=== PATIENT | male | born 1965 | race Caucasian/White ===

== ENCOUNTER 2017-10-16 15:48 | Emergency (ER) | payer OTHER ==
[2017-10-16] MEDS ORDERED: Sodium Chloride 0.9% 10 ML Syringe FLUSH PRN (16:07)
[2017-10-16] MEDS ORDERED: HYDROmorphone 0.5 MG/0.5 ML SYRINGE IVPUSH ONE (16:09)
[2017-10-16] MEDS ORDERED: Ketorolac 30 MG/ML SDV IVPUSH ONE (16:09)
[2017-10-16] MEDS ORDERED: Lidocaine 1% 50 ML MDV INJECT ONE (17:45)
[2017-10-16] MEDS ORDERED: HYDROmorphone 1 MG/ML Syringe IVPUSH ONE (17:59)
[2017-10-16] MEDS ORDERED: methylPREDNISolone Sodium Succinate 125 MG/2 ML SDV IVPUSH ONE (17:59)
--- NOTE | 2017-10-16 18:04 | EDM.PDOC ---
ED HPI GENERAL MEDICAL PROBLEM - General Chief Complaint: Lower Extremity Injury/Pain Stated Complaint: LEFT KNEE PROBLEM Time Seen by Provider: 10/16/17 15:53 Source of Information: Reports: Patient History Limitations: Reports: No Limitations - History of Present Illness INITIAL COMMENTS - FREE TEXT/NARRATIVE: The patient presents with left knee swelling and pain. This started a few days ago. He does not remember hurting it. He has a history of problems with this knee. He hurt his miniscus years ago and had surgery. He tells me that the meniscus was removed. He also had some bone that they cleaned up. He then would have steroid injections every 6 months for a few years. He had a hinged brace but it is not fitting right lately. He was hurting so bad he could not bear weight on it. He has no fever, chills, chest pain, or shortness of breath. The patient has something going on with an ear and he was put on some methyl prednisolone. His knee felt great for a few days before it started hurting. Onset: Gradual Duration: Day(s): (3) Location: Reports: Lower Extremity, Left (Knee) Quality: Reports: Sharp Severity: Severe Improves with: Reports: Immobilization Worsens with: Reports: Movement Context: Reports: Other (He was just at work) Associated Symptoms: Reports: No Other Symptoms Left Knee Pain Score (Numeric/FACES): 9 - Related Data Allergies Allergy/AdvReac Type Severity Reaction Status Date / Time Penicillins Allergy Hives Verified 10/16/17 15:58 Home Meds: Home Meds Hydrocodone/Acetaminophen [Hydrocodon-Acetaminophen 5-325] 1 - 2 each PO Q6HR PRN #20 tablet 10/16/17 [Rx] Past Medical History - Past Surgical History Musculoskeletal Surgical History: Reports: Shoulder Surgery, Other (See Below) Other Musculoskeletal Surgeries/Procedures:: knee surgery Social & Family History - Family History Family Medical History: Noncontributory - Tobacco Use Smoking Status *Q: Current Every Day Smoker Years of Tobacco use: 8 Packs/Tins Daily: 0.5 - Caffeine Use Caffeine Use: Reports: Coffee - Recreational Drug Use Recreational Drug Use: No Review of Systems - Review of Systems Review Of Systems: See Below Constitutional: Reports: No Symptoms Eyes: Reports: No Symptoms Ears: Reports: No Symptoms Nose: Reports: No Symptoms Mouth/Throat: Reports: No Symptoms Respiratory: Reports: No Symptoms Cardiovascular: Reports: No Symptoms GI/Abdominal: Reports: No Symptoms Genitourinary: Reports: No Symptoms Musculoskeletal: Reports: Other (Left knee pain and swelling) ED EXAM, GENERAL - Physical Exam Exam: See Below Exam Limited By: No Limitations General Appearance: Alert, No Apparent Distress Ears: Normal External Exam Nose: Normal Inspection Head: Atraumatic, Normocephalic Neck: Normal Inspection Respiratory/Chest: No Respiratory Distress, Lungs Clear, Normal Breath Sounds Cardiovascular: Regular Rate, Rhythm, No Edema, No Murmur GI/Abdominal: Soft, Non-Tender, No Organomegaly, No Mass Back Exam: Normal Inspection Extremities: Other (Moderate edema to the left knee with no erythema. Mild warmth to the distal patellar tendon. He has pain to that area and to the medial and posterior knee. He has good sensation and pulses distally. He can lift his lef off of the bed.) Course - Vital Signs Last Recorded V/S: Last Vital Signs Temp 97.7 F 10/16/17 15:55 Pulse 72 10/16/17 15:55 Resp 18 10/16/17 15:55 BP 140/60 10/16/17 15:55 Pulse Ox 97 10/16/17 15:55 - Orders/Labs/Meds Orders: Active Orders 24 hr Category Date Time Status Peripheral IV Care [RC] . DIRECTED Care 10/16/17 16:08 Active Knee Min 4V Lt [CR] Stat Exams 10/16/17 16:10 Taken Sodium Chloride 0.9% [Saline Flush] Med 10/16/17 16:07 Active 10 ml FLUSH ASDIRECTED PRN Peripheral IV Insertion Adult [OM.PC] Stat Oth 10/16/17 16:07 Ordered Medication Orders Sodium Chloride (Saline Flush) 10 ml FLUSH ASDIRECTED PRN PRN Reason: Keep Vein Open Last Admin: 10/16/17 16:26 Dose: 10 ml Labs: Laboratory Tests 10/16/17 10/16/17 10/16/17 Range/Units 16:30 16:30 16:30 WBC 13.21 H (4.23-9.07) K/mm3 RBC 5.04 (4.63-6.08) M/mm3 Hgb 15.9 (13.7-17.5) gm/L Hct 46.1 (40.1-51.0) % MCV 91.5 (79.0-92.2) fl MCH 31.5 (25.7-32.2) pg MCHC 34.5 (32.2-35.5) g/dl RDW Std Deviation 43.0 (35.1-43.9) fL Plt Count 221 (163-337) K/mm3 MPV 10.8 (9.4-12.3) fl Neut % (Auto) 75.6 H (34.0-67.9) % Lymph % (Auto) 12.9 L (21.8-53.1) % Russell % (Auto) 10.1 (5.3-12.2) % Eos % (Auto) 0.9 (0.8-7.0) Baso % (Auto) 0.2 (0.1-1.2) % Neut # (Auto) 9.99 H (1.78-5.38) K/mm3 Lymph # (Auto) 1.70 (1.32-3.57) K/mm3 Russell # (Auto) 1.33 H (0.30-0.82) K/mm3 Eos # (Auto) 0.12 (0.04-0.54) K/mm3 Baso # (Auto) 0.03 (0.01-0.08) K/mm3 ESR 17 H (0-15) mm/hr Sodium 134 L (136-145) mEq/L Potassium 3.9 (3.5-5.1) mEq/L Chloride 100 (98-107) mEq/L Carbon Dioxide 23 (21-32) mEq/L Anion Gap 14.9 (5-15) BUN 23 H (7-18) mg/dL Creatinine 0.9 (0.7-1.3) mg/dL Est Cr Clr Drug Dosing 90.78 mL/min Estimated GFR (MDRD) > 60 (>60) mL/min BUN/Creatinine Ratio 25.6 H (14-18) Glucose 112 H (74-106) mg/dL Uric Acid 7.0 (3.5-7.2) mg/dL Calcium 9.0 (8.5-10.1) mg/dL Total Bilirubin 0.7 (0.2-1.0) mg/dL AST 20 (15-37) U/L ALT 39 (16-63) U/L Alkaline Phosphatase 76 (46-116) U/L C-Reactive Protein 5.2 H* (<1.0) mg/dL Total Protein 7.5 (6.4-8.2) g/dl Albumin 3.7 (3.4-5.0) g/dl Globulin 3.8 gm/dL Albumin/Globulin Ratio 1.0 (1-2) Meds: Medications Generic Name Dose Route Start Last Admin Trade Name Fresanjeev PRN Reason Stop Dose Admin Sodium Chloride 10 ml 10/16/17 16:07 10/16/17 16:26 Saline Flush FLUSH 10 ml ASDIRECTED PRN Administration Keep Vein Open Discontinued Medications Generic Name Dose Route Start Last Admin Trade Name Madison PRN Reason Stop Dose Admin Hydromorphone HCl 0.5 mg 10/16/17 16:09 10/16/17 16:26 Dilaudid IVPUSH 10/16/17 16:10 0.5 mg ONETIME ONE Administration Ketorolac Tromethamine 30 mg 10/16/17 16:09 10/16/17 16:26 Toradol IVPUSH 10/16/17 16:10 30 mg ONETIME ONE Administration Lidocaine HCl 50 ml 10/16/17 17:45 10/16/17 17:43 Xylocaine 1% INJECT 10/16/17 17:46 50 ml ONETIME ONE Administration - Re-Assessments/Exams Free Text/Narrative Re-Assessment/Exam: 10/16/17 18:08 I ordered an IV saline lock, dilaudid 0.5mg IV, toradol 30mg IV, labs and an x- ray of his knee. His x-ray shows moderate to severe osteoarthritis. His WBC was a little elevated at 13.21. His ESR was elevated at 17. His CRP is elevated at 5.2. His Na was low at 134. I talked to Dr Kaufman and he wanted me to try to tap his knee and get him a hinged brace and he can see him in follow up. Consent was obtained and I used chlorprep to clean the left medial knee in the area of the lateral proximal patella. I used lidocaine 1.5ccs to anaesthetize the area. I attempted to to a thorocentesis with a 20ml syringe. I was unable to get any fluid. I tried again and again I was unable to get any fluid. I could not advance. I will give him something more for pain and solu-medrol 125mg IV. I will also write him a prescription for a hinged knee brace. Departure - Departure Time of Disposition: 18:20 Disposition: Home, Self-Care 01 Condition: Good Clinical Impression: Osteoarthritis of left knee Qualifiers: Osteoarthritis type: primary Qualified Code(s): M17.12 - Unilateral primary osteoarthritis, left knee - Discharge Information *PRESCRIPTION DRUG MONITORING PROGRAM REVIEWED*: No *COPY OF PRESCRIPTION DRUG MONITORING REPORT IN PATIENT JOVITA: No Prescriptions: Hydrocodone/Acetaminophen [Hydrocodon-Acetaminophen 5-325] 1 - 2 each PO Q6HR PRN #20 tablet PRN Reason: Pain Referrals: PCP,None [Primary Care Provider] - Gregory Kaufman MD [Physician] - 1 Week Additional Instructions: Ice your knee for 15 minutes every other hour while awake for 2 days. Elevate your knee above your heart as much as you can for 2 days. Take motrin or aleve for pain. You may also take the hydrocodone as needed for pain. Call Dr Kaufman' s office and tomorrow and follow up with him in 1 to 2 weeks. 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 Please return if you are worse. - My Orders Last 24 Hours: My Active Orders 10/16/17 16:07 Sodium Chloride 0.9% [Saline Flush] 10 ml FLUSH ASDIRECTED PRN Peripheral IV Insertion Adult [OM.PC] Stat 10/16/17 16:08 Peripheral IV Care [RC] . DIRECTED 10/16/17 16:10 Knee Min 4V Lt [CR] Stat - Assessment/Plan Last 24 Hours: My Active Orders 10/16/17 16:07 Sodium Chloride 0.9% [Saline Flush] 10 ml FLUSH ASDIRECTED PRN Peripheral IV Insertion Adult [OM.PC] Stat 10/16/17 16:08 Peripheral IV Care [RC] . DIRECTED 10/16/17 16:10 Knee Min 4V Lt [CR] Stat
--- NOTE | 2017-10-19 12:09 | CR ---
Left knee: Four views of the left knee were obtained. Comparison: No previous study. Joint effusion is seen. Femur is slightly subluxed medially in relation to the tibia which is likely degenerative in etiology. Osteophytes are noted off the medial and lateral joint. Osteophytes are seen off the patella. Impression: 1. Joint effusion. 2. Degenerative change as noted above. Diagnostic code #3
== END 2017-10-16 18:35 | disposition home or self-care (01) ==
LOC: JD.ED 15:48
DX: M17.12 Unilateral primary osteoarthritis, left knee (principal); F17.210 Nicotine dependence, cigarettes, uncomplicated; Z88.0 Allergy status to penicillin
CPT/HCPCS: 20610; 36415; 73564; 80053; 84550; 85025; 85652; 86140; 96374; 96375; 96376; 99284; J1170; J1885; J2930; J7050

== ENCOUNTER 2018-05-15 13:22 | Emergency (ER) | payer OTHER ==
--- NOTE | 2018-05-15 14:17 | EDM.PDOC ---
ED HPI GENERAL MEDICAL PROBLEM - General Chief Complaint: Upper Extremity Injury/Pain Stated Complaint: RT SHOULDER PAIN Time Seen by Provider: 05/15/18 13:31 Source of Information: Reports: Patient, RN Notes Reviewed History Limitations: Reports: No Limitations - History of Present Illness INITIAL COMMENTS - FREE TEXT/NARRATIVE: The patient states that he developed right shoulder pain this past Sunday evening, 05/13/2018, and that it has become progressively worse. He indicates that his pain is felt anterosuperiorly (over the humeral head). No recent fever. No paresthesia to the right upper extremity. No prior similar symptoms. 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 The patient states that he has been taking Aleve, with inadequate relief. The patient does not have a PCP. Right Upper Shoulder Pain Score (Numeric/FACES): 9 - Related Data Allergies Allergy/AdvReac Type Severity Reaction Status Date / Time Penicillins Allergy Hives Verified 10/16/17 15:58 Home Meds: Home Meds predniSONE [Prednisone] 1 tab PO QPM #6 tablet 05/15/18 [Rx] Past Medical History - Past Surgical History HEENT Surgical History: Reports: Oral Surgery (wisdom teeth extraction) Musculoskeletal Surgical History: Reports: Arthroscopic Procedure (left knee), Shoulder Surgery (left, replacement) Social & Family History - Family History Family Medical History: Noncontributory - Tobacco Use Smoking Status *Q: Current Every Day Smoker Years of Tobacco use: 24 Packs/Tins Daily: 0.5 - Caffeine Use Caffeine Use: Reports: Coffee - Alcohol Use Alcohol Use History: Yes Alcohol Use Frequency: Socially - Recreational Drug Use Recreational Drug Use: No - Living Situation & Occupation Living situation: Reports: Single, Alone Occupation: Employed ([employer]) Review of Systems - Review of Systems Review Of Systems: ROS reveals no pertinent complaints other than HPI. ED EXAM, GENERAL - Physical Exam Exam: See Below Exam Limited By: No Limitations General Appearance: Alert, WD/WN, No Apparent Distress Extremities: Other (No visible abnormality to the right shoulder, when compared to the left, such as swelling, erythema, ecchymosis, or abrasion. The patient reports severe tenderness to palpation of the anterior, lateral, posterior, and superior right shoulder, as well as tenderness over the A-C) Course - Vital Signs Last Recorded V/S: Last Vital Signs Temp 36.9 C 05/15/18 13:28 Pulse 65 05/15/18 13:28 Resp 16 05/15/18 13:28 BP Pulse Ox 96 05/15/18 13:28 - Orders/Labs/Meds Labs: Laboratory Tests 05/15/18 05/15/18 05/15/18 Range/Units 15:50 15:50 15:50 WBC 10.72 H (4.23-9.07) K/mm3 RBC 4.85 (4.63-6.08) M/mm3 Hgb 14.7 (13.7-17.5) gm/L Hct 43.4 (40.1-51.0) % MCV 89.5 (79.0-92.2) fl MCH 30.3 (25.7-32.2) pg MCHC 33.9 (32.2-35.5) g/dl RDW Std Deviation 43.7 (35.1-43.9) fL Plt Count 255 (163-337) K/mm3 MPV 9.4 (9.4-12.3) fl Neutrophils % (Manual) 70 H (40-60) % Band Neutrophils % 0 (0-10) % Lymphocytes % (Manual) 20 (20-40) % Atypical Lymphs % 0 % Monocytes % (Manual) 8 (2-10) % Eosinophils % (Manual) 0 L (0.8-7.0) % Basophils % (Manual) 2 H (0.2-1.2) Platelet Estimate Adequate Plt Morphology Comment Normal RBC Morph Comment Normal ESR 15 (0-15) mm/hr C-Reactive Protein 2.4 H* (<1.0) mg/dL - Re-Assessments/Exams Free Text/Narrative Re-Assessment/Exam: 05/15/18 15:29 There was a delay in managing this patient, as I had to attend to another patient with an intracranial hemorrhage, including intubation. I'm concerned about the patient's physical examination, in that he has tenderness to all aspects of the shoulder, pain with all attempts of motion against resistance, and even pain with PROM. Case discussed with Dr. Kaufman at 15: 20. He felt that it is possible that the patient is drug-seeking, however, he wanted me to be sure that the patient does not have an infection in the shoulder , therefore he recommended that I check a CRP and ESR. He would like me to call him back if either of those are elevated. The other alternatives are that the patient has a full-thickness rotator cuff tear or adhesive capsulitis. If the inflammatory markers are not elevated, he is recommending that I treat the patient with either a steroid or an NSAID, then have the patient follow-up in his clinic. I have ordered a CBC, CRP, and ESR. 05/15/18 17:[address] Kaufman at 15:20. He does not feel that the patient's inflammatory markers are consistent with the patient having an infection in the shoulder. He therefore recommends a trial of steroids, and have the patient follow-up with him this coming 05/17/2018. I will start the patient on 40 mg of prednisone now, then 20 mg daily, to complete a seven-day course. 05/15/18 17:20 Test results and the plan of care discussed with the patient. The patient is agreeable. I offered to give the patient pain medication, however, the patient drove himself here. He has agreed to arrange for a ride home, therefore I have ordered Dilaudid 1 mg IM. Departure - Departure Time of Disposition: 17:20 Disposition: Home, Self-Care 01 Condition: Fair Clinical Impression: Right shoulder pain - Discharge Information *PRESCRIPTION DRUG MONITORING PROGRAM REVIEWED*: Not Applicable *COPY OF PRESCRIPTION DRUG MONITORING REPORT IN PATIENT JOVITA: Not Applicable Prescriptions: predniSONE [Prednisone] 1 tab PO QPM #6 tablet Referrals: Gregory Kaufman MD [Physician] - Forms: ED Department Discharge Additional Instructions: You were seen in the emergency room for right shoulder pain that developed Sunday evening, 05/13/2018. Workup in the ER included blood work, which was not consistent with your having an infection in your right shoulder. Your case was discussed with the Orthopedic Surgeon Dr. Gregory Kaufman. He recommended that you be placed on oral steroids. You have been started on prednisone. A prescription to complete a 7-day course of prednisone has been provided to you. Start taking one tablet of prednisone every evening, starting tomorrow evening, , 05/16/2018, as prescribed. Take with food. It is important that if you are taking prednisone, that you DO NOT also take an NSAID, such as ibuprofen (Advil, Motrin) or naproxen (Aleve). Follow-up with Dr. Kaufman this coming 05/17/2018. If any other problems, please do not hesitate to return to the ER.
[2018-05-15] MEDS ORDERED: predniSONE 20 MG Tab PO STA (17:13)
[2018-05-15] MEDS ORDERED: HYDROmorphone 1 MG/ML Syringe IM ONE (17:19)
== END 2018-05-15 18:03 | disposition home or self-care (01) ==
LOC: JD.ED 13:22
DX: M25.511 Pain in right shoulder (principal); F17.210 Nicotine dependence, cigarettes, uncomplicated; Z88.0 Allergy status to penicillin
CPT/HCPCS: 36415; 85007; 85027; 85652; 86140; 96372; 99283; A9270; J1170

== ENCOUNTER 2018-10-26 11:33 | Emergency (ER) | payer OTHER ==
[2018-10-26] MEDS ORDERED: Ketorolac 60 MG/2 ML SDV IM ONE (12:03)
[2018-10-26] MEDS ORDERED: HYDROmorphone 1 MG/ML Syringe IM ONE ×2 (12:03→13:16)
[2018-10-26] MEDS ORDERED: Ondansetron 4 MG Tab.DIS PO ONE (12:03)
--- NOTE | 2018-10-26 12:06 | EDM.PDOC ---
ED HPI GENERAL MEDICAL PROBLEM - General Chief Complaint: Lower Extremity Injury/Pain Stated Complaint: L KNEE PAIN Time Seen by Provider: 10/26/18 11:54 Source of Information: Reports: Patient, Old Records History Limitations: Reports: No Limitations - History of Present Illness INITIAL COMMENTS - FREE TEXT/NARRATIVE: 53-year-old male presents for evaluation and treatment of left knee pain. Patient reports on he was walking up and downstairs helping a friend move. Since then he has developed significant knee pain and swelling. Has difficulty walking due to the pain. He denies any trauma such as falls. Patient was seen in the about a year ago with nearly the same history. Was seen by Dr. Rodriguez. He had labs as well as x-ray done. Dr. Kaufman was consulted. They attempted to tap the knee but were unsuccessful. He was supposed to follow up with Dr. Kaufman but the patient reports he did not do this. Previous surgery to include meniscal repair. 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 Left Knee Pain Score (Numeric/FACES): 8 - Related Data Allergies Allergy/AdvReac Type Severity Reaction Status Date / Time Penicillins Allergy Hives Verified 10/26/18 11:42 Home Meds: Home Meds Acetaminophen/HYDROcodone [[place] 325-5 MG] 1 tab PO Q4H PRN #20 tablet 10/26/18 [Rx] Naproxen 500 mg PO BID #30 tablet 10/26/18 [Rx] Past Medical History - Past Health History Medical/Surgical History: Denies Medical/Surgical History - Past Surgical History HEENT Surgical History: Reports: Oral Surgery Musculoskeletal Surgical History: Reports: Arthroscopic Procedure, Shoulder Surgery Social & Family History - Family History Family Medical History: Noncontributory - Tobacco Use Smoking Status *Q: Current Every Day Smoker Years of Tobacco use: 30 Packs/Tins Daily: 0.5 - Caffeine Use Caffeine Use: Reports: Coffee - Recreational Drug Use Recreational Drug Use: No - Living Situation & Occupation Living situation: Reports: Single, Alone Occupation: Employed ([employer]) Review of Systems - Review of Systems Review Of Systems: See Below Musculoskeletal: Reports: Joint Pain (left knee), Joint Swelling (left knee) Skin: Denies: Erythema, Wound Neurological: Denies: Numbness, Tingling ED EXAM, GENERAL - Physical Exam Exam: See Below Exam Limited By: No Limitations General Appearance: Alert, WD/WN, Moderate Distress, Obese Nose: Normal Inspection Throat/Mouth: Normal Inspection, Normal Voice, No Airway Compromise Respiratory/Chest: No Respiratory Distress, Lungs Clear, Normal Breath Sounds Cardiovascular: Normal Peripheral Pulses, Regular Rate, Rhythm, No Murmur Extremities: Other (joint effusion left knee, no obvious abnormailty, very tender on exam; special testing deferred due to pain; flexed to 90 degrees for comfort) Neurological: Alert, Oriented, Normal Cognition Course - Vital Signs Last Recorded V/S: Last Vital Signs Temp 98.1 F 10/26/18 11:42 Pulse 66 10/26/18 11:42 Resp 17 10/26/18 11:42 BP 125/72 10/26/18 11:42 Pulse Ox 96 10/26/18 11:42 - Orders/Labs/Meds Orders: Active Orders 24 hr Category Date Time Status Knee Min 4V Lt [CR] Stat Exams 10/26/18 12:03 Taken Meds: Medications Discontinued Medications Generic Name Dose Route Start Last Admin Trade Name Madison PRN Reason Stop Dose Admin Hydromorphone HCl 1 mg 10/26/18 12:03 10/26/18 12:22 Dilaudid IM 10/26/18 12:04 1 mg ONETIME ONE Administration Hydromorphone HCl 1 mg 10/26/18 13:16 10/26/18 13:24 Dilaudid IM 10/26/18 13:17 1 mg ONETIME ONE Administration Ketorolac Tromethamine 60 mg 10/26/18 12:03 10/26/18 12:19 Toradol IM 10/26/18 12:04 60 mg ONETIME ONE Administration Ondansetron HCl 4 mg 10/26/18 12:03 10/26/18 12:18 Zofran Odt PO 10/26/18 12:04 4 mg ONETIME ONE Administration - Radiology Interpretation Free Text/Narrative:: X-rays of the left knee show no acute fractures but significant arthritis. Formal radiology read pending. - Re-Assessments/Exams Free Text/Narrative Re-Assessment/Exam: 10/26/18 13:18 Reviewed the xray results with he patient. he needs to see ortho. Will likely need a knee replacement. Will prescribe something for pain. He has crutches and a knee brace at home. Discharge instructions as documented. Departure - Departure Time of Disposition: 13:19 Disposition: Home, Self-Care 01 Condition: Fair Clinical Impression: Osteoarthritis of left knee Qualifiers: Osteoarthritis type: primary Qualified Code(s): M17.12 - Unilateral primary osteoarthritis, left knee - Discharge Information *PRESCRIPTION DRUG MONITORING PROGRAM REVIEWED*: Yes *COPY OF PRESCRIPTION DRUG MONITORING REPORT IN PATIENT JOVITA: No Prescriptions: Acetaminophen/HYDROcodone [[place] 325-5 MG] 1 tab PO Q4H PRN #20 tablet PRN Reason: Pain Naproxen 500 mg PO BID #30 tablet Instructions: Osteoarthritis Referrals: PCP,None [Primary Care Provider] - Gregory Kaufman MD [Physician] - Forms: ED Department Discharge Additional Instructions: You were given medication in the ER that can affect your ability to drive and operate machinery. Do not drive or operate machinery within 10 hours of taking perception narcotic pain medication. Naproxen 1 tab twice a day. ice, elevate and use heat. May also want to try topical products such as icy hot or BenGay. Activity as tolerated. Start with gentle ROM. Movement is good for arthritis. may take [place] one to 2 tabs every 4-6 hours as needed for severe pain. [place] is habit-forming, take as few these as needed control your pain. Do not drive or operate machinery within 10 hours of taking [place]. Follow-up with Dr. Kaufman. Call [phone] to schedule with him. Please return to the ER if your symptoms change or worsen. - My Orders Last 24 Hours: My Active Orders 10/26/18 12:03 Knee Min 4V Lt [CR] Stat - Assessment/Plan Last 24 Hours: My Active Orders 10/26/18 12:03 Knee Min 4V Lt [CR] Stat
--- NOTE | 2018-10-28 09:28 | CR ---
Left knee: Four views of the left knee were obtained. Comparison: Prior left knee study of 10/16/17. Large joint effusion is seen. Diffuse degenerative irregularity is seen within the medial and lateral joint compartments. Osteophytes are noted off the medial and lateral knee as well as off the patella. Slight deformity is noted within the proximal tibial plateau most likely due to old injury. Nothing acute is otherwise seen. Pressure: 1. Degenerative change within the left knee. Large joint effusion. 2. No acute bony abnormality is appreciated. Diagnostic code #3
== END 2018-10-26 13:37 | disposition home or self-care (01) ==
LOC: JD.ED 11:33
DX: M17.12 Unilateral primary osteoarthritis, left knee (principal); F17.210 Nicotine dependence, cigarettes, uncomplicated; Z88.0 Allergy status to penicillin
CPT/HCPCS: 73564; 96372; 99283; A9270; J1170; J1885

== ENCOUNTER 2019-01-20 09:41 | Day surgery (SDC) | payer OTHER ==
[~2019-01-20 09:41] MED LIST: Bisacodyl 5 MG Tab PO PRN; Lactated Ringers 1,000 ML IV SCH; Lidocaine 1%/Sod Bicarbonate in NS 8.4% 1 ML Syringe IDERM PRN; Magnesium Hydroxide 400 MG/5 ML Susp 30 ML Cup PO PRN; Morphine 2 MG/ML Syringe IVPUSH PRN; Naloxone 0.4 MG/ML SDV IVPUSH PRN; Ondansetron 4 MG/2 ML SDV IVPUSH PRN; Ropivacaine 0.5% 5 MG/ML 30 ML SDV ONE; Sennosides 8.6 MG Tab PO PRN; Sodium Chloride 0.9% 10 ML Syringe FLUSH PRN
[2019-01-20] MEDS ORDERED: Acetaminophen 325 MG Tab PO SCH (10:21)
[2019-01-20] MEDS ORDERED: oxyCODONE ER 10 MG TAB.ER PO SCH (10:21)
[2019-01-20] MEDS ORDERED: Pregabalin 25 MG Cap PO SCH (10:22)
[2019-01-20] MEDS ORDERED: Vancomycin 1 GM SDV ONE (10:31)
[2019-01-20] MEDS ORDERED: Bupivacaine 0.25% 10 ML SDV ONE (10:32)
[2019-01-20] MEDS ORDERED: Lidocaine 1%/Sod Bicarbonate in NS 8.4% 1 ML Syringe IDERM PRN (10:51)
[2019-01-20] MEDS ORDERED: Sodium Chloride 0.9% 10 ML Syringe FLUSH PRN (10:51)
--- NOTE | 2019-01-20 10:55 | PCM.PREANE ---
Preanesthetic Assessment - Anesthesia/Transfusion/Family Hx Anesthesia History: Prior Anesthesia Without Reaction Family History of Anesthesia Reaction: No Transfusion History: No Prior Transfusion(s) Anesthesia/Transfusion Comment: No previous problems with anesthesia or with intubation per patient - Review of Systems General: No Symptoms Pulmonary: No Symptoms Cardiovascular: No Symptoms Gastrointestinal: No Symptoms Neurological: No Symptoms Other: Reports: None - Physical Assessment NPO Status Date: 01/19/19 NPO Status Time: 23:30 Vital Signs: Last Vital Signs Temp 36.4 C 01/20/19 10:10 Pulse 56 L 01/20/19 10:10 Resp 16 01/20/19 10:10 BP 149/90 H 01/20/19 10:10 Pulse Ox 98 01/20/19 10:10 Height: 5 ft 7 in Weight: 92.986 kg ASA Class: 2 Mental Status: Alert & Oriented x3 Airway Class: Mallampati = 2 Dentition: Reports: Normal Dentition Thyro-Mental Finger Breadths: 3 Mouth Opening Finger Breadths: 3 ROM/Head Extension: Full Lungs: Clear to Auscultation, Normal Respiratory Effort Cardiovascular: Regular Rate, Regular Rhythm - Lab Values: Laboratory Last Values MRSA (PCR) Negative 01/08/19 16:21 - Allergies Allergies/Adverse Reactions: Allergies Allergy/AdvReac Type Severity Reaction Status Date / Time Penicillins Allergy Hives Verified 01/15/19 15:29 - Blood Blood Available: Yes - Acknowledgements Anesthesia Type Planned: Spinal, Regional Block Pt an Appropriate Candidate for the Planned Anesthesia: Yes Alternatives and Risks of Anesthesia Discussed w Pt/Guardian: Yes Pt/Guardian Understands and Agrees with Anesthesia Plan: Yes PreAnesthesia Questionnaire - Past Health History Medical/Surgical History: Denies Medical/Surgical History Cardiovascular History: Reports: None Respiratory History: Reports: None Gastrointestinal History: Reports: None Genitourinary History: Reports: None [employer] History: Reports: None Musculoskeletal History: Reports: Other (See Below) Other Musculoskeletal History: left knee pain Neurological History: Reports: None Psychiatric History: Reports: None Endocrine/Metabolic History: Reports: None Hematologic History: Reports: None Immunologic History: Reports: None Oncologic (Cancer) History: Reports: None Dermatologic History: Reports: None - Past Surgical History Head Surgeries/Procedures: Reports: None HEENT Surgical History: Reports: Oral Surgery, Other (See Below) Other HEENT Surgeries/Procedures: tube in ear Cardiovascular Surgical History: Reports: None Respiratory Surgical History: Reports: None GI Surgical History: Reports: None Female Surgical History: Reports: None Male Surgical History: Reports: None Endocrine Surgical History: Reports: None Neurological Surgical History: Reports: None Musculoskeletal Surgical History: Reports: Arthroscopic Procedure, Shoulder Surgery Other Musculoskeletal Surgeries/Procedures:: knee surgery Oncologic Surgical History: Reports: None Dermatological Surgical History: Reports: None - SUBSTANCE USE Smoking Status *Q: Former Smoker Recreational Drug Use History: No - HOME MEDS Home Medications: Home Meds Cholecalciferol (Vitamin D3) [Vitamin D3] 5,000 unit PO DAILY 01/15/19 [History] - CURRENT (IN HOUSE) MEDS Current Meds: Current Medications Acetaminophen (Tylenol) 975 mg PO NOW [facility] Stop: 01/20/19 15:00 Last Admin: 01/20/19 10:32 Dose: 975 mg Aspirin (Ecotrin) 325 mg PO BID [facility] Bisacodyl (Dulcolax) 5 mg PO DAILY PRN PRN Reason: Constipation Morphine Sulfate 8 mg/Epinephrine HCl 0.3 mg/Cefuroxime Sodium 750 mg/Ketorolac Tromethamine 30 mg/Sodium Chloride 27.9 ml 0 mg .XX ONETIME ONE Stop: 01/20/19 07:05 Cyclobenzaprine HCl (Flexeril) 10 mg PO TID PRN PRN Reason: Spasms Docusate Sodium (Colace) 100 mg PO BID [facility] Famotidine (Pepcid) 20 mg PO Q12H [facility] Lactated Ringer's (Ringers, Lactated) 1,000 mls @ 125 mls/hr IV ASDIRECTED [facility] Stop: 01/20/19 23:00 Last Admin: 01/20/19 10:30 Dose: 125 mls/hr Cefazolin Sodium/Dextrose 2 gm (/ Premix) 50 mls @ 100 mls/hr IV Q8H [facility] Stop: 01/20/19 23:44 Ketorolac Tromethamine (Toradol) 15 mg IVPUSH Q6H PRN PRN Reason: Pain Lidocaine/Sodium Bicarbonate (Buffered Lidocaine 1% In Ns 8.4%) 0.25 ml IDERM ONETIME PRN PRN Reason: Prior to IV Start Stop: 01/20/19 18:00 Last Admin: 01/20/19 10:30 Dose: 0.25 ml Magnesium Hydroxide (Milk Of Magnesia) 30 ml PO BID PRN PRN Reason: Constipation Morphine Sulfate (Morphine) 2 mg IVPUSH Q2H PRN PRN Reason: Breakthrough Pain Naloxone HCl (Narcan) 0.1 mg IVPUSH Q5M PRN PRN Reason: Oversedation Ondansetron HCl (Zofran) 4 mg IVPUSH Q6H PRN PRN Reason: Nausea/Vomiting Oxycodone HCl (Oxycontin) 10 mg PO ONETIME [facility] Stop: 01/20/19 15:00 Last Admin: 01/20/19 10:32 Dose: 10 mg Oxycodone/Acetaminophen (Percocet 325-5 Mg) 1 - 2 tab PO Q4H PRN PRN Reason: Pain Pregabalin (Lyrica) 50 mg PO ONETIME [facility] Stop: 01/20/19 15:00 Last Admin: 01/20/19 10:33 Dose: 50 mg Senna (Senna) 8.6 mg PO BID PRN PRN Reason: Constipation Sodium Chloride (Saline Flush) 10 ml FLUSH ASDIRECTED PRN PRN Reason: Keep Vein Open Stop: 01/20/19 18:00 Discontinued Medications Bupivacaine HCl (Sensorcaine-Mpf 0.25%) Confirm Administered Dose 30 ml .ROUTE .STK-MED ONE Stop: 01/20/19 10:33 Cefazolin Sodium (Ancef) Confirm Administered Dose 2 gm .ROUTE .STK-MED ONE Stop: 01/20/19 10:33 Iodine (Iodine 2% Mild Tincture) Confirm Administered Dose 30 ml .ROUTE .STK- MED ONE Stop: 01/20/19 10:33 Ropivacaine (Naropin 0.5%) Confirm Administered Dose 30 ml .ROUTE .STK-MED ONE Stop: 01/20/19 07:45 Tranexamic Acid (Cyklokapron) Confirm Administered Dose 1,000 mg .ROUTE .STK- MED ONE Stop: 01/20/19 10:32 Vancomycin HCl (Vancomycin) Confirm Administered Dose 1 gm .ROUTE .STK-MED ONE Stop: 01/20/19 10:32
[2019-01-20] MEDS ORDERED: Lactated Ringers 1,000 ML IV SCH (11:00)
[2019-01-20] MEDS ORDERED: Lidocaine 1% 4 ML ONE (11:01)
[2019-01-20] MEDS ORDERED: Morphine PF 10 MG/10 ML SDV ONE (11:02)
[2019-01-20] MEDS ORDERED: Propofol 200 MG/20 ML SDV ONE ×2 (11:02→12:24)
[2019-01-20] MEDS ORDERED: ceFAZolin 1 GM Vial ONE (11:02)
[2019-01-20] MEDS ORDERED: fentaNYL 100 MCG/2 ML SDV ONE (12:07)
[2019-01-20] MEDS ORDERED: ePHEDrine/Normal Saline 25 MG/5 ML Syringe ONE (12:26)
[2019-01-20] MEDS: ceFAZolin 1 GM Vial ONE ×2 (13:08→13:13)
[2019-01-20] MEDS: Iodine/Sodium Iodide 2% Tincture 30 ML Bottle ONE ×2 (13:08→13:10)
[2019-01-20] MEDS: Morphine 8 MG, EPINEPHrine 0.3 MG, Cefuroxime 750 MG, Ketorolac 30 MG, Sodium Chloride ... ONE ×10 (13:19→18:22)
--- NOTE | 2019-01-20 14:10 | PCM.POSTAN ---
POST ANESTHESIA ASSESSMENT - MENTAL STATUS Mental Status: Alert, Oriented - VITAL SIGNS Vital Signs: Last Vital Signs Temp 36.6 C 01/20/19 14:00 Pulse 69 01/20/19 14:00 Resp 15 01/20/19 14:00 BP 120/63 01/20/19 14:00 Pulse Ox 96 01/20/19 14:00 - RESPIRATORY Respiratory Status: Respiratory Rate WNL, Airway Patent, O2 Saturation Stable - CARDIOVASCULAR CV Status: Pulse Rate WNL, Blood Pressure Stable - GASTROINTESTINAL GI Status: No Symptoms - PAIN Pain Score: 0 - POST OP HYDRATION Hydration Status: Adequate & Stable (Routine transfer to PACU with handoff to RN. No complications. SSNB to follow.)
--- NOTE | 2019-01-20 14:47 | CR ---
Left knee: AP and lateral views of the left knee were obtained. Comparison: Prior left knee exam of 10/26/18. Knee prosthesis is seen. Components are aligned. Underlying bony structures are intact. Soft tissue air is noted from the surgical procedure. Impression: 1. Satisfactory postop radiographic appearance recently placed left knee prosthesis. Diagnostic code #2 This report was dictated in [place] Standard Time
[2019-01-20] MEDS: Famotidine 20 MG Tab PO SCH ×3 (17:58→18:24)
[2019-01-20] MEDS: ceFAZolin 2 GM in Premix Bag 1 BAG IV SCH (17:59)
[2019-01-20] MEDS: Acetaminophen/oxyCODONE 325-5 MG Tab PO PRN (17:59)
[2019-01-20] MEDS: Docusate Sodium 100 MG Cap PO SCH (21:06)
[2019-01-20] MEDS: Cyclobenzaprine 10 MG Tab PO PRN (21:19)
[2019-01-21] MEDS: Acetaminophen/oxyCODONE 325-5 MG Tab PO PRN ×4 (01:24→13:07)
[2019-01-21] MEDS: Ketorolac 15 MG/ML SDV IVPUSH PRN ×2 (03:14→10:23)
[2019-01-21] MEDS: ceFAZolin 2 GM in Premix Bag 1 BAG IV SCH ×2 (03:17→10:28)
[2019-01-21] MEDS: Cyclobenzaprine 10 MG Tab PO PRN ×2 (03:59→13:06)
[2019-01-21] MEDS: Famotidine 20 MG Tab PO SCH (06:16)
--- NOTE | 2019-01-21 08:32 | PCM.SURGPN ---
- General Info Date of Service: 01/21/19 POD#: 1 Functional Status: Reports: Tolerating Diet, Ambulating, Urinating, Incentive Spirometry (The pt states he is more comfortable this morning.) - Patient Data Vitals - Most Recent: Last Vital Signs Temp 98.4 F 01/21/19 03:20 Pulse 67 01/21/19 03:20 Resp 18 01/21/19 06:59 BP 124/76 01/21/19 03:20 Pulse Ox 97 01/21/19 06:00 Weight - Most Recent: 205 lb I&O - Last 24 Hours: Intake & Output 01/20/19 01/21/19 01/21/19 22:59 06:59 14:59 Intake Total 740 Balance 740 Lab Results Last 24 Hrs: Laboratory Results - last 24 hr 01/21/19 01/21/19 Range/Units 05:35 05:35 WBC 7.25 (4.23-9.07) K/mm3 RBC 4.07 L (4.63-6.08) M/mm3 Hgb 12.3 L D (13.7-17.5) gm/dl Hct 37.2 L (40.1-51.0) % MCV 91.4 (79.0-92.2) fl MCH 30.2 (25.7-32.2) pg MCHC 33.1 (32.2-35.5) g/dl RDW Std Deviation 42.1 (35.1-43.9) fL Plt Count 212 (163-337) K/mm3 MPV 10.1 (9.4-12.3) fl Sodium 133 L (136-145) mEq/L Potassium 4.3 (3.5-5.1) mEq/L Chloride 99 (98-107) mEq/L Carbon Dioxide 24 (21-32) mEq/L Anion Gap 14.3 (5-15) BUN 23 H (7-18) mg/dL Creatinine 1.2 (0.7-1.3) mg/dL Est Cr Clr Drug Dosing 65.03 mL/min Estimated GFR (MDRD) > 60 (>60) mL/min BUN/Creatinine Ratio 19.2 H (14-18) Glucose 113 H (74-106) mg/dL Calcium 8.4 L (8.5-10.1) mg/dL Total Bilirubin 0.7 (0.2-1.0) mg/dL AST 23 (15-37) U/L ALT 34 (16-63) U/L Alkaline Phosphatase 57 (46-116) U/L Total Protein 6.4 (6.4-8.2) g/dl Albumin 3.3 L (3.4-5.0) g/dl Globulin 3.1 gm/dL Albumin/Globulin Ratio 1.1 (1-2) Med Orders - Current: Current Medications Aspirin (Ecotrin) 325 mg PO BID [facility] Bisacodyl (Dulcolax) 5 mg PO DAILY PRN PRN Reason: Constipation Cholecalciferol (Vitamin D3) 5,000 unit PO DAILY [facility] Cyclobenzaprine HCl (Flexeril) 10 mg PO TID PRN PRN Reason: Spasms Last Admin: 01/21/19 03:59 Dose: 10 mg Docusate Sodium (Colace) 100 mg PO BID [facility] Last Admin: 01/20/19 21:06 Dose: 100 mg Famotidine (Pepcid) 20 mg PO Q12H [facility] Last Admin: 01/21/19 06:16 Dose: 20 mg Cefazolin Sodium/Dextrose 2 gm (/ Premix) 50 mls @ 100 mls/hr IV Q8H [facility] Stop: 01/21/19 11:29 Last Admin: 01/21/19 03:17 Dose: 100 mls/hr Ketorolac Tromethamine (Toradol) 15 mg IVPUSH Q6H PRN PRN Reason: Pain Last Admin: 01/21/19 03:14 Dose: 15 mg Magnesium Hydroxide (Milk Of Magnesia) 30 ml PO BID PRN PRN Reason: Constipation Morphine Sulfate (Morphine) 2 mg IVPUSH Q2H PRN PRN Reason: Breakthrough Pain Naloxone HCl (Narcan) 0.1 mg IVPUSH Q5M PRN PRN Reason: Oversedation Ondansetron HCl (Zofran) 4 mg IVPUSH Q6H PRN PRN Reason: Nausea/Vomiting Oxycodone/Acetaminophen (Percocet 325-5 Mg) 1 - 2 tab PO Q4H PRN PRN Reason: Pain Last Admin: 01/21/19 05:24 Dose: 2 tab Senna (Senna) 8.6 mg PO BID PRN PRN Reason: Constipation Discontinued Medications Acetaminophen (Tylenol) 975 mg PO NOW [facility] Stop: 01/20/19 15:00 Last Admin: 01/20/19 10:32 Dose: 975 mg Bupivacaine HCl (Sensorcaine-Mpf 0.25%) Confirm Administered Dose 30 ml .ROUTE .STK-MED ONE Stop: 01/20/19 10:33 Last Admin: 01/20/19 13:20 Dose: 30 ml Cefazolin Sodium (Ancef) Confirm Administered Dose 2 gm .ROUTE .STK-MED ONE Stop: 01/20/19 10:33 Last Admin: 01/20/19 13:13 Dose: 2 gm Cefazolin Sodium (Ancef) Confirm Administered Dose 2 gm .ROUTE .STK-MED ONE Stop: 01/20/19 11:03 Morphine Sulfate 8 mg/Epinephrine HCl 0.3 mg/Cefuroxime Sodium 750 mg/Ketorolac Tromethamine 30 mg/Sodium Chloride 27.9 ml 0 mg .XX ONETIME ONE Stop: 01/20/19 13:01 Last Admin: 01/20/19 18:22 Dose: Not Given Ephedrine Sulfate (Ephedrine In Ns) Confirm Administered Dose 25 mg .ROUTE .STK- MED ONE Stop: 01/20/19 12:27 Fentanyl (Sublimaze) Confirm Administered Dose 100 mcg .ROUTE .STK-MED ONE Stop: 01/20/19 12:08 Lactated Ringer's (Ringers, Lactated) 1,000 mls @ 125 mls/hr IV ASDIRECTED [facility] Stop: 01/20/19 23:00 Last Admin: 01/20/19 10:30 Dose: 125 mls/hr Lactated Ringer's (Ringers, Lactated) 1,000 mls @ 125 mls/hr IV ASDIRECTED [facility] Lidocaine HCl (Xylocaine-Mpf 1%) Confirm Administered Dose 4 mls @ as directed .ROUTE .STK-MED ONE Stop: 01/20/19 11:02 Iodine (Iodine 2% Mild Tincture) Confirm Administered Dose 30 ml .ROUTE .STK- MED ONE Stop: 01/20/19 10:33 Last Admin: 01/20/19 13:10 Dose: 18 ml Lidocaine/Sodium Bicarbonate (Buffered Lidocaine 1% In Ns 8.4%) 0.25 ml IDERM ONETIME PRN PRN Reason: Prior to IV Start Stop: 01/20/19 18:00 Last Admin: 01/20/19 10:30 Dose: 0.25 ml Lidocaine/Sodium Bicarbonate (Buffered Lidocaine 1% In Ns 8.4%) 0.25 ml IDERM ONETIME PRN PRN Reason: Prior to IV Start Stop: 01/20/19 18:00 Morphine Sulfate (Duramorph Pf) Confirm Administered Dose 10 mg .ROUTE .STK-MED ONE Stop: 01/20/19 11:03 Oxycodone HCl (Oxycontin) 10 mg PO ONETIME [facility] Stop: 01/20/19 15:00 Last Admin: 01/20/19 10:32 Dose: 10 mg Pregabalin (Lyrica) 50 mg PO ONETIME [facility] Stop: 01/20/19 15:00 Last Admin: 01/20/19 10:33 Dose: 50 mg Propofol (Diprivan 20 Ml) Confirm Administered Dose 400 mg .ROUTE .STK-MED ONE Stop: 01/20/19 11:03 Propofol (Diprivan 20 Ml) Confirm Administered Dose 200 mg .ROUTE .STK-MED ONE Stop: 01/20/19 12:25 Ropivacaine (Naropin 0.5%) Confirm Administered Dose 30 ml .ROUTE .STK-MED ONE Stop: 01/20/19 07:45 Sodium Chloride (Saline Flush) 10 ml FLUSH ASDIRECTED PRN PRN Reason: Keep Vein Open Stop: 01/20/19 18:00 Sodium Chloride (Saline Flush) 10 ml FLUSH ASDIRECTED PRN PRN Reason: Keep Vein Open Stop: 01/20/19 20:00 Tranexamic Acid (Cyklokapron) Confirm Administered Dose 1,000 mg .ROUTE .STK- MED ONE Stop: 01/20/19 10:32 Last Admin: 01/20/19 13:25 Dose: 1,000 mg Vancomycin HCl (Vancomycin) Confirm Administered Dose 1 gm .ROUTE .STK-MED ONE Stop: 01/20/19 10:32 Last Admin: 01/20/19 13:21 Dose: 1 gm - Exam Wound/Incisions: Dressing Dry and Intact General: Alert, Cooperative, No Acute Distress Lungs: Normal Respiratory Effort Extremities: Other (NVS intact for BLE. Maria R's negative.) - Problem List Review Problem List Initiated/Reviewed/Updated: Yes - My Orders Last 24 Hours: Active Orders 24 hr Category Date Time Status Bradycardia-Neuroaxis [employer] [RC] DAILY Care 01/20/19 10:51 Active Hypertension-Neuroaxis [employer] [RC] DAILY Care 01/20/19 10:51 Active Hypotension-Neuroaxis [employer] [RC] DAILY Care 01/20/19 10:51 Active Peripheral IV Care [RC] Q2HR Care 01/20/19 10:51 Active Ready for Discharge [RC] PER UNIT ROUTINE Care 01/21/19 08:30 Ordered Verify Patient Consent Obtain [RC] ASDIRECTED Care 01/20/19 10:51 Inactive Regular Diet [DIET] Diet 01/20/19 Lunch Active Aspirin [Ecotrin] Med 01/21/19 09:00 Active 325 mg PO BID Cholecalciferol (Vitamin D3) [Vitamin D3] Med 01/21/19 09:00 Active 5,000 unit PO DAILY Docusate Sodium [Colace] Med 01/20/19 21:00 Active 100 mg PO BID ceFAZolin [Ancef] 2 gm Med 01/20/19 19:00 Active Premix Bag 1 bag IV Q8H Medication Administration Instruction [OM.PC] Routine Oth 01/20/19 10:51 Ordered Medication Orders Aspirin (Ecotrin) 325 mg PO BID [facility] Bisacodyl (Dulcolax) 5 mg PO DAILY PRN PRN Reason: Constipation Cholecalciferol (Vitamin D3) 5,000 unit PO DAILY [facility] Cyclobenzaprine HCl (Flexeril) 10 mg PO TID PRN PRN Reason: Spasms Last Admin: 01/21/19 03:59 Dose: 10 mg Admin: 01/20/19 21:19 Dose: 10 mg Docusate Sodium (Colace) 100 mg PO BID [facility] Last Admin: 01/20/19 21:06 Dose: 100 mg Famotidine (Pepcid) 20 mg PO Q12H [facility] Last Admin: 01/21/19 06:16 Dose: 20 mg Admin: 01/20/19 18:24 Dose: Not Given Admin: 01/20/19 17:59 Dose: 20 mg Admin: 01/20/19 17:58 Dose: Cefazolin Sodium/Dextrose 2 gm (/ Premix) 50 mls @ 100 mls/hr IV Q8H [facility] Stop: 01/21/19 11:29 Last Admin: 01/21/19 03:17 Dose: 100 mls/hr Infusion: 01/20/19 18:29 Dose: 100 mls/hr Admin: 01/20/19 17:59 Dose: 100 mls/hr Ketorolac Tromethamine (Toradol) 15 mg IVPUSH Q6H PRN PRN Reason: Pain Last Admin: 01/21/19 03:14 Dose: 15 mg Magnesium Hydroxide (Milk Of Magnesia) 30 ml PO BID PRN PRN Reason: Constipation Morphine Sulfate (Morphine) 2 mg IVPUSH Q2H PRN PRN Reason: Breakthrough Pain Naloxone HCl (Narcan) 0.1 mg IVPUSH Q5M PRN PRN Reason: Oversedation Ondansetron HCl (Zofran) 4 mg IVPUSH Q6H PRN PRN Reason: Nausea/Vomiting Oxycodone/Acetaminophen (Percocet 325-5 Mg) 1 - 2 tab PO Q4H PRN PRN Reason: Pain Last Admin: 01/21/19 05:24 Dose: 2 tab Admin: 01/21/19 01:24 Dose: 2 tab Admin: 01/20/19 17:59 Dose: 2 tab Senna (Senna) 8.6 mg PO BID PRN PRN Reason: Constipation - Assessment Assessment (Free Text/Narrative):: POD#1 - left TKA - Plan Plan (Free Text/Narrative):: 1. Hgb 11.7. 2. Discharge to home today. 3. 325mg ASA PO BID, frequent mobility, TEDs. 4. Outpatient therapy. The pt's case was discussed with Dr. Kaufman. Dr. Kaufman also evaluated the pt today.
[2019-01-21] MEDS ORDERED: Aspirin 325 MG Tab.EC PO SCH (09:00)
[2019-01-21] MEDS ORDERED: Cholecalciferol (Vitamin D3) 5,000 UNIT Tab PO SCH (09:00)
[2019-01-21] MEDS: Docusate Sodium 100 MG Cap PO SCH (09:13)
--- NOTE | 2019-01-21 11:03 | PCM48HPAN ---
Post Anesthesia Note - EVALUATION WITHIN 48HRS OF ANESTHETIC Vital Signs in Normal Range: Yes Patient Participated in Evaluation: Yes Respiratory Function Stable: Yes Airway Patent: Yes Cardiovascular Function Stable: Yes Hydration Status Stable: Yes Pain Control Satisfactory: Yes Nausea and Vomiting Control Satisfactory: Yes Mental Status Recovered: Yes Vital Signs: Last Vital Signs Temp 37.1 C 01/21/19 08:58 Pulse 72 01/21/19 08:58 Resp 18 01/21/19 08:58 BP 121/72 01/21/19 08:58 Pulse Ox 93 L 01/21/19 09:00
--- NOTE | 2019-01-24 13:26 | PCM.OPNOTE ---
- General Post-Op/Procedure Note Date of Surgery/Procedure: 01/20/19 Operative Procedure(s): left total knee arthroplasty Pre Op Diagnosis: left knee osteoarthrosis Post-Op Diagnosis: Same Anesthesia Technique: Local, MAC, Spinal Primary Surgeon: Gregory Kaufman Fabric Worker: Kelli Galarza Fabric Worker: Malia Crooks EBL in mLs: 375 Complications: None Condition: Good Free Text/Narrative:: 06/23 13mm 35x10
--- NOTE | 2019-01-24 13:46 | OR ---
DATE OF OPERATION: 01/20/2019 SURGEON: Gregory Kaufman MD OPERATION PERFORMED: Left total knee arthroplasty. PREOPERATIVE DIAGNOSIS: Left knee osteoarthrosis. POSTOPERATIVE DIAGNOSIS: Left knee osteoarthrosis. ANESTHESIA: Local MAC with spinal. ASSISTANTS: Kelli Galarza PA-C, and Malia Crooks LPN. ESTIMATED BLOOD LOSS: 375 mL. COMPLICATIONS: None. CONDITION: Stable. IMPLANTS: 1. [place] size 5 press-fit CR femur. 2. [place] size 5 press-fit tibial baseplate. 3. [place] size 5, 13 mm CS polyethylene insert. 4. New size 35 x 10 mm press-fit asymmetric patella. DESCRIPTION OF PROCEDURE: The patient was identified in the preop holding area. Proper site was marked and identified by the surgeon. The patient was taken back to the operating theater. After adequate anesthesia, the patient's left lower extremity had a nonsterile tourniquet applied and it was sterilely prepped and draped in the usual sterile fashion. OR time-out was performed. The patient received 2 g IV Ancef. At this time, the left lower extremity was exsanguinated. Tourniquet was insufflated to 300 mmHg. Standard medial parapatellar incision was made. Medial parapatellar arthrotomy was created. Deep fibers of the MCL were raised and anterior fat pad was resected. At this time, attention was turned to the patella. Patella measured 24, it was resected to a 14 for 35 x 10 mm patella. Drill holes were then drilled and found to be in adequate position. The drill was then drilled in the distal femur and the intramedullary distal femoral cutting guide was then placed. 10 mm was resected off the distal femur and was found to be an adequate resection. Sizing guide was placed. It was found to be a size 5 press-fit CR femur that was shown on the implant record at the beginning of this dictation. The drill holes were drilled for the epicondylar axis using [place] line and epicondyles as reference. At this time, the 4-in- 1 cutting block was placed. An anterior posterior and anterior and posterior chamfer cuts were then completed. Attention was turned to the tibia. The posterior medial lateral retractors were placed. The extramedullary tibial guide was placed. It was placed in the old footprint of the ACL. It was aligned with the center of the ankle and 0 degrees of slope, 9 mm was then resected off the unaffected side. There was found to be an acceptable reduction. At this time, posterior osteophytes were removed along with medial and lateral meniscus. A trial implant was placed with a correct sized tibia that was mentioned at the beginning of the dictation. A New size 5, 13 mm CS polyethylene insert was then placed. The patient's knee was brought through range of motion. The patella was tracking centrally and was stable to varus and valgus stress. Alignment was found to be roughly at 0 degrees. The tibia was stamped and drilled in proper rotation. The universal tibial base plate was impacted in place. Next, the New size 5 press-fit CR femur impacted into place and the [place] size 5, 13 mm CS polyethylene insert was placed. The patient's knee was brought into full extension. The patella was then press-fit in place at this time. Tourniquet was deflated. One liter dilute Betadine solution was irrigated through the knee along with 3 L of pulse lavage irrigation with Ancef. Periarticular injection was then completed. The patient's knee was brought through a range of motion. Once the cement had time to set up and it was found to be stable to varus valgus stress, the patella was tracking centrally with full range of motion. At this time, a #2 barbed suture was used for closure of the medial parapatellar arthrotomy. Topical tranexamic acid was placed. 2-0 Vicryl was used subcutaneously, Prineo was used for the skin. The patient tolerated the procedure well and was sent to the PACU in stable condition. MMCHRISTIANO /[id number]
== END 2019-01-21 13:23 | disposition home or self-care (01) ==
LOC: JD.SDS 09:41 → JD.MS 14:51 → JD.SDS 01-21 13:23
PROVIDERS: ATTEND Orthopaedic Surgery
DX: M17.12 Unilateral primary osteoarthritis, left knee (principal); Z87.891 Personal history of nicotine dependence; Z88.0 Allergy status to penicillin
CPT/HCPCS: 27447; 36415; 73560; 80053; 85027; 87641; 94760; 94762; 97110; 97116; 97161; 97165; 97535; A9270; C1776; J0171; J0690; J0697; J1885; J2001; J2270; J2704; J2795; J3010; J3370; J3490; J7050; J7120; 01402

== ENCOUNTER 2019-04-17 10:05 | Emergency (ER) | payer OTHER ==
[2019-04-17] MEDS ORDERED: Acetaminophen 325 MG Tab PO ONE (10:42)
--- NOTE | 2019-04-17 11:43 | CT ---
Head CT Technique: Multiple axial sections through the brain were obtained. Intravenous contrast was not utilized. Comparison: No prior intracranial imaging is available. Findings: Ventricles along with basal cisterns and sulci over the convexities are within normal limits for the patient's age. No abnormal parenchymal densities are seen. No evidence of intracranial hemorrhage. No midline shift or mass-effect is seen. Bone window settings were reviewed. Visualized mastoid sinuses and paranasal sinuses show nothing acute. No acute calvarial abnormality is seen. Impression: 1. Nothing acute is appreciated on noncontrast head CT exam. Diagnostic code #1 This report was dictated in [place] Standard Time
--- NOTE | 2019-04-17 12:45 | EDM.PDOC ---
ED HPI GENERAL MEDICAL PROBLEM - General Chief Complaint: Gastrointestinal Problem Stated Complaint: HEADACHE/NAUSEA/EYE COMPLAINT Time Seen by Provider: 04/17/19 10:28 Source of Information: Reports: Patient History Limitations: Reports: No Limitations - History of Present Illness INITIAL COMMENTS - FREE TEXT/NARRATIVE: The patient presents with a headache, fever, chills, and generalized weakness. This started yesterday. 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 He has a slight cough but no chest pain, cough, congestion, abdominal pain or vomiting. He has some nausea at times. He says he has some photophobia. Onset: Gradual Duration: Day(s): Location: Reports: Head Quality: Reports: Sharp Severity: Moderate Improves with: Reports: None Worsens with: Reports: None Associated Symptoms: Reports: Headaches. Denies: Chest Pain, Cough, Fever/ Chills, Nausea/Vomiting, Shortness of Breath Frontal Forehead Pain Score (Numeric/FACES): 7 - Related Data Allergies Allergy/AdvReac Type Severity Reaction Status Date / Time Penicillins Allergy Hives Verified 04/17/19 10:31 Home Meds: Home Meds Oseltamivir [Tamiflu] 75 mg PO BID #10 cap 04/17/19 [Rx] Past Medical History - Past Health History Medical/Surgical History: Denies Medical/Surgical History Cardiovascular History: Reports: None Respiratory History: Reports: None Gastrointestinal History: Reports: None Genitourinary History: Reports: None CAT SITTER History: Reports: None Musculoskeletal History: Reports: Other (See Below) Other Musculoskeletal History: left knee pain Neurological History: Reports: None Psychiatric History: Reports: None Endocrine/Metabolic History: Reports: None Hematologic History: Reports: None Immunologic History: Reports: None Oncologic (Cancer) History: Reports: None Dermatologic History: Reports: None - Past Surgical History Head Surgeries/Procedures: Reports: None HEENT Surgical History: Reports: Oral Surgery, Other (See Below) Other HEENT Surgeries/Procedures: tube in ear Cardiovascular Surgical History: Reports: None Respiratory Surgical History: Reports: None GI Surgical History: Reports: None Male Surgical History: Reports: None Endocrine Surgical History: Reports: None Neurological Surgical History: Reports: None Musculoskeletal Surgical History: Reports: Arthroscopic Procedure, Shoulder Surgery Other Musculoskeletal Surgeries/Procedures:: knee surgery Oncologic Surgical History: Reports: None Dermatological Surgical History: Reports: None Social & Family History - Family History Family Medical History: Noncontributory - Tobacco Use Smoking Status *Q: Former Smoker Years of Tobacco use: 12 Packs/Tins Daily: 0.5 Used Tobacco, but Quit: Yes Month/Year Tobacco Last Used: 09/06 Second Hand Smoke Exposure: No - Caffeine Use Caffeine Use: Reports: Coffee - Recreational Drug Use Recreational Drug Use: No - Living Situation & Occupation Living situation: Reports: Single, Alone Occupation: Employed ([employer]) ED ROS GENERAL - Review of Systems Review Of Systems: See Below Constitutional: Reports: Fever, Chills, Weakness HEENT: Reports: No Symptoms Respiratory: Reports: No Symptoms Cardiovascular: Reports: No Symptoms Endocrine: Reports: No Symptoms GI/Abdominal: Reports: Nausea. Denies: Abdominal Pain, Vomiting : Reports: No Symptoms ED EXAM, GI/ABD - Physical Exam Exam: See Below Exam Limited By: No Limitations General Appearance: Alert, No Apparent Distress Ears: Normal External Exam Nose: Normal Inspection Head: Atraumatic, Normocephalic Neck: Normal Inspection Respiratory/Chest: No Respiratory Distress, Lungs Clear, Normal Breath Sounds Cardiovascular: Regular Rate, Rhythm, No Edema, No Murmur GI/Abdominal Exam: Soft, Non-Tender, No Organomegaly, No Mass Extremities: Normal Inspection Course - Vital Signs Last Recorded V/S: Last Vital Signs Temp 99.6 F 04/17/19 10:33 Pulse 78 04/17/19 10:33 Resp 18 04/17/19 10:33 BP 133/89 04/17/19 10:33 Pulse Ox 96 04/17/19 10:33 - Orders/Labs/Meds Orders: Active Orders 24 hr Category Date Time Status Cardiac Monitoring [RC] . DIRECTED Care 04/17/19 10:42 Active Labs: Laboratory Tests 04/17/19 04/17/19 04/17/19 Range/Units 11:00 11:00 11:01 WBC 6.11 (4.23-9.07) K/mm3 RBC 4.70 (4.63-6.08) M/mm3 Hgb 14.0 D (13.7-17.5) gm/dl Hct 42.0 (40.1-51.0) % MCV 89.4 (79.0-92.2) fl MCH 29.8 (25.7-32.2) pg MCHC 33.3 (32.2-35.5) g/dl RDW Std Deviation 44.3 H (35.1-43.9) fL Plt Count 238 (163-337) K/mm3 MPV 9.8 (9.4-12.3) fl Neut % (Auto) 73.0 H (34.0-67.9) % Lymph % (Auto) 10.6 L (21.8-53.1) % [place] % (Auto) 16.0 H (5.3-12.2) % Eos % (Auto) 0 L (0.8-7.0) Baso % (Auto) 0.2 (0.1-1.2) % Neut # (Auto) 4.46 (1.78-5.38) K/mm3 Lymph # (Auto) 0.65 L (1.32-3.57) K/mm3 [place] # (Auto) 0.98 H (0.30-0.82) K/mm3 Eos # (Auto) 0.00 L (0.04-0.54) K/mm3 Baso # (Auto) 0.01 (0.01-0.08) K/mm3 ABG Carboxyhemoglobin 1.2 (0.00-1.50) %THgb Sodium 138 (136-145) mEq/L Potassium 3.9 (3.5-5.1) mEq/L Chloride 102 (98-107) mEq/L Carbon Dioxide 23 (21-32) mEq/L Anion Gap 16.9 H (5-15) BUN 12 (7-18) mg/dL Creatinine 0.9 (0.7-1.3) mg/dL Est Cr Clr Drug Dosing 86.71 mL/min Estimated GFR (MDRD) > 60 (>60) mL/min BUN/Creatinine Ratio 13.3 L (14-18) Glucose 96 (74-106) mg/dL Calcium 9.0 (8.5-10.1) mg/dL Total Bilirubin 0.2 (0.2-1.0) mg/dL AST 20 (15-37) U/L ALT 51 (16-63) U/L Alkaline Phosphatase 62 (46-116) U/L C-Reactive Protein 2.2 H* (<1.0) mg/dL Total Protein 7.3 (6.4-8.2) g/dl Albumin 3.7 (3.4-5.0) g/dl Globulin 3.6 gm/dL Albumin/Globulin Ratio 1.0 (1-2) Meds: Medications Discontinued Medications Generic Name Dose Route Start Last Admin Trade Name Madison PRN Reason Stop Dose Admin Acetaminophen 975 mg 04/17/19 10:42 04/17/19 10:59 Tylenol PO 04/17/19 10:43 975 mg NOW ONE Administration - Re-Assessments/Exams Free Text/Narrative Re-Assessment/Exam: 04/17/19 12:49 I ordered labs and a CT of he head. 04/17/19 13:[address] of his head looks good. His CBC and CMP look good. His carboxyhemaglobing was normal. He is influenza A positive. I will get him on some tamiflu. Departure - Departure Time of Disposition: 13:55 Disposition: Home, Self-Care 01 Condition: Good Clinical Impression: Influenza A - Discharge Information *PRESCRIPTION DRUG MONITORING PROGRAM REVIEWED*: Not Applicable *COPY OF PRESCRIPTION DRUG MONITORING REPORT IN PATIENT JOVITA: Not Applicable Prescriptions: Oseltamivir [Tamiflu] 75 mg PO BID #10 cap Referrals: PCP,Not In Area [Primary Care Provider] - Forms: ED Department Discharge Additional Instructions: Take the tamiflu 2 times per day for 5 days. Drink plenty of fluids. Take tylenol or motrin for any fever or pain. Please return if you are worse. Sepsis Event Note - Evaluation Sepsis Screening Result: No Definite Risk - Focused Exam Vital Signs: Vital Signs Temp Pulse Resp BP Pulse Ox 04/17/19 10:33 99.6 F 78 18 133/89 96 Date Exam was Performed: 04/17/19 Time Exam was Performed: 13:49 - My Orders Last 24 Hours: My Active Orders 04/17/19 10:42 Cardiac Monitoring [RC] . DIRECTED - Assessment/Plan Last 24 Hours: My Active Orders 04/17/19 10:42 Cardiac Monitoring [RC] . DIRECTED
== END 2019-04-17 14:00 | disposition home or self-care (01) ==
LOC: JD.ED 10:05
DX: J10.1 Influenza due to other identified influenza virus with other respiratory manifestations (principal); Z88.0 Allergy status to penicillin; Z87.891 Personal history of nicotine dependence
CPT/HCPCS: 36415; 70450; 80053; 82375; 85025; 86140; 87804; 99285; A9270; 99283

== ENCOUNTER 2020-08-25 13:46 | Emergency (ER) | payer SELFPAY ==
[2020-08-25] MEDS ORDERED: Sodium Chloride 0.9% 1,000 ML IV ONE (14:06)
[2020-08-25] MEDS ORDERED: Sodium Chloride 0.9% 10 ML Syringe FLUSH PRN (14:06)
[2020-08-25] MEDS ORDERED: Ondansetron 4 MG/2 ML SDV IVPUSH ONE (14:06)
--- NOTE | 2020-08-25 14:21 | EDM.PDOC ---
<Sarah Perrin M - Last Filed: 08/26/20 09:08> ED HPI GENERAL MEDICAL PROBLEM - General Chief Complaint: General Stated Complaint: POSSIBLE HEAT STOKE Time Seen by Provider: 08/25/20 13:54 Source of Information: Reports: Patient History Limitations: Reports: No Limitations - History of Present Illness INITIAL COMMENTS - FREE TEXT/NARRATIVE: 55-year-old male presents the emergency department today with complaints of heat exhaustion. Patient states that he was feeling well up until this weekend. 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 Temperatures were around 100 degrees. He states he tried to make sure he drink plenty of water however he states that about 5 days ago he started feeling extremely fatigued and had little to no appetite. He states that 4 days ago he had approximately 4 beers and felt he had drink plenty of water throughout the day as well. He was celebrating 22 August. He states by that evening he felt extreme fatigue and was nauseated. He also developed diarrhea at that time. He states he has voided only minimally throughout the day since then. He states that whenever he feels he likes to go to the bathroom that he has watery diarrhea. States again that he has had minimal appetite. He is try to drink plenty water and eat lots of fruits however has not had any real solid intake for the past 5 to 6 days. Denies any headache, fever, chills or abdominal pain. He states he has some cramping noted to his legs. He also tells me that he has lost approximately 30 pounds in the past few days. Of note the patient states he is in good health. He does not take any prescription medications. He only takes multivitamins. 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 Musculoskeletal History: Reports: Other (See Below) Other Musculoskeletal History: left knee pain Neurological History: Reports: None Psychiatric History: Reports: None Endocrine/Metabolic History: Reports: None Hematologic History: Reports: None Immunologic History: Reports: None Oncologic (Cancer) History: Reports: None Dermatologic History: Reports: None - Past Surgical History HEENT Surgical History: Reports: Oral Surgery, Other (See Below) Other HEENT Surgeries/Procedures: tube in ear Musculoskeletal Surgical History: Reports: Arthroscopic Knee, Knee Replacement, Shoulder Surgery Social & Family History - Family History Family Medical History: No Pertinent Family History - Tobacco Use Tobacco Use Status *Q: Current Every Day Tobacco User Years of Tobacco use: 10 Packs/Tins Daily: 0.5 - Caffeine Use Caffeine Use: Reports: Coffee - Recreational Drug Use Recreational Drug Use: No - Living Situation & Occupation Living situation: Reports: Single, Alone Occupation: Employed ([employer]) ED ROS GENERAL - Review of Systems Review Of Systems: Comprehensive ROS is negative, except as noted in HPI. ED EXAM, GENERAL - Physical Exam Exam: See Below Exam Limited By: No Limitations General Appearance: Alert, WD/WN, No Apparent Distress Ears: Normal External Exam, Hearing Grossly Normal Nose: Normal Inspection Throat/Mouth: Normal Inspection, Normal Lips, Normal Voice, No Airway Compromise Head: Atraumatic Neck: Normal Inspection, Supple Respiratory/Chest: No Respiratory Distress, Lungs Clear, Normal Breath Sounds, No Accessory Muscle Use, Chest Non-Tender Cardiovascular: Normal Peripheral Pulses, Regular Rate, Rhythm, No Edema, No Murmur Peripheral Pulses: 2+: Radial (L), Radial (R) GI/Abdominal: Normal Bowel Sounds, Soft, Non-Tender, No Distention (Male) Exam: Deferred Rectal (Males) Exam: Deferred Back Exam: Normal Inspection Extremities: Normal Inspection, Normal Range of Motion, Non-Tender, Normal Capillary Refill Neurological: Alert, Oriented, Normal Cognition Psychiatric: Normal Affect, Normal Mood Skin Exam: Warm, Dry, Intact, Normal Color, No Rash Lymphatic: No Adenopathy Course - Vital Signs Text/Narrative:: Patient presents with generalized fatigue, muscle cramps, decreased appetite and diarrhea. He states this started about 5 days ago. He has been out working in the heat all day the past several days, as the temperatures have been around 100 degrees all weekend. Feels like he was taking in an adequate amount of water however he was not supplementing with electrolytes. He has otherwise normally healthy. I have ordered labs to include a CBC, CMP, magnesium level, C-reactive protein, UA with micro and culture if indicated. I have also ordered stool for C. difficile and stool studies as the patient states that he has had profuse watery diarrhea for the past several days. Patient will receive a liter of normal saline bolus and Zofran 4 mg IV for nausea. - Re-Assessments/Exams Free Text/Narrative Re-Assessment/Exam: 08/25/20 15:12 I have handed over care to Pita Pate NP. Departure - Departure Disposition: Home, Self-Care 01 Clinical Impression: Hypokalemia, Dehydration, Acute renal injury due to hypovolemia - Discharge Information Instructions: Acute Kidney Injury, Adult, Hypokalemia, Dehydration, Adult, [id number], Rehydration, Adult Referrals: PCP,Not In Area [Primary Care Provider] - Forms: ED Department Discharge Additional Instructions: You were seen in the emergency department today for evaluation with concerns of possible heat exhaustion. Blood work was done and showed that you were significantly dehydrated. While in the ER, you received 3 L of IV fluid. This did improve your labs, however your kidney function has not completely returned to normal. As long as you continue to have increased fluid intake, this should resolve over time. Recommend drinking at least 100 ounces of Gatorade or Power eleonora per day. If you continue to have diarrhea, you will need to increase this amount to offset that. A stool culture has been sent. You will be notified of these results should they grow out anything concerning. Follow-up in the clinic on Sunday to have blood work rechecked. If you should develop any worsening symptoms such as onset of vomiting, worsening diarrhea, lack of urination, or any other concerning symptoms, please return to the emergency department for reevaluation. Sepsis Event Note (ED) - Evaluation Sepsis Screening Result: No Definite Risk <Pita Pate - Last Filed: 08/26/20 12:21> Course - Vital Signs Last Recorded V/S: Last Vital Signs Temp 96.4 F L 08/25/20 13:51 Pulse 71 08/25/20 20:00 Resp 16 08/25/20 13:51 BP 134/79 08/25/20 20:00 Pulse Ox 94 L 08/25/20 20:00 - Orders/Labs/Meds Orders: Active Orders 24 hr Category Date Time Status STOOL CULTURE/SHIGA TOXIN [MREF] Stat Lab 08/25/20 18:56 Received Saline Lock Insert [OM.PC] Stat Oth 08/25/20 14:06 Ordered Labs: Laboratory Tests 08/25/20 08/25/20 08/25/20 Range/Units 13:55 13:55 13:55 WBC 9.22 H (4.23-9.07) K/mm3 RBC 6.15 H (4.63-6.08) M/mm3 Hgb 18.6 H D (13.7-17.5) gm/dl Hct 51.8 H (40.1-51.0) % MCV 84.2 D (79.0-92.2) fl MCH 30.2 (25.7-32.2) pg MCHC 35.9 H (32.2-35.5) g/dl RDW Std Deviation 39.7 (35.1-43.9) fL Plt Count 501 H D (163-337) K/mm3 MPV 10.9 (9.4-12.3) fl Neut % (Auto) 61.8 (34.0-67.9) % Lymph % (Auto) 14.9 L (21.8-53.1) % [place] % (Auto) 21.8 H (5.3-12.2) % Eos % (Auto) 0.3 L (0.8-7.0) Baso % (Auto) 0.5 (0.1-1.2) % Neut # (Auto) 5.70 H (1.78-5.38) K/mm3 Lymph # (Auto) 1.37 (1.32-3.57) K/mm3 [place] # (Auto) 2.01 H (0.30-0.82) K/mm3 Eos # (Auto) 0.03 L (0.04-0.54) K/mm3 Baso # (Auto) 0.05 (0.01-0.08) K/mm3 Manual Slide Review Abnormal smear Sodium 133 L (136-145) mEq/L Potassium 3.2 L (3.5-5.1) mEq/L Chloride 91 L (98-107) mEq/L Carbon Dioxide 23 (21-32) mEq/L Anion Gap 22.2 H (5-15) BUN 80 H D (7-18) mg/dL Creatinine 2.7 H D (0.7-1.3) mg/dL Est Cr Clr Drug Dosing 28.22 mL/min Estimated GFR (MDRD) 24 (>60) mL/min BUN/Creatinine Ratio 29.6 H (14-18) Glucose 138 H (70-99) mg/dL Calcium 8.5 (8.5-10.1) mg/dL Magnesium 1.8 (1.8-2.4) mg/dL Total Bilirubin 0.5 (0.2-1.0) mg/dL AST 13 L (15-37) U/L ALT 31 (16-63) U/L Alkaline Phosphatase 66 (46-116) U/L Creatine Kinase 74 (39-308) U/L C-Reactive Protein 7.5 H* (<1.0) mg/dL Total Protein 8.7 H (6.4-8.2) g/dl Albumin 3.5 (3.4-5.0) g/dl Globulin 5.2 gm/dL Albumin/Globulin Ratio 0.7 L (1-2) TSH 3rd Generation 1.532 (0.358-3.74) uIU/mL Urine Color (Yellow) Urine Appearance (Clear) Urine pH (5.0-8.0) Ur Specific [place] (1.005-1.030) Urine Protein (Negative) Urine Glucose (UA) (Negative) Urine Ketones (Negative) Urine Occult Blood (Negative) Urine Nitrite (Negative) Urine Bilirubin (Negative) Urine Urobilinogen (0.2-1.0) Ur Leukocyte Esterase (Negative) Urine RBC (0-5) /hpf Urine WBC (0-5) /hpf Ur Squamous Epith Cells (0-5) /hpf Urine Bacteria (FEW) /hpf Urine Mucus (FEW) /hpf C.difficile 027-NAP1-B1 C. difficile Tox (PCR) 08/25/20 08/25/20 08/25/20 Range/Units 16:45 18:51 18:51 WBC 8.24 (4.23-9.07) K/mm3 RBC 5.05 (4.63-6.08) M/mm3 Hgb 15.3 D (13.7-17.5) gm/dl Hct 43.8 (40.1-51.0) % MCV 86.7 (79.0-92.2) fl MCH 30.3 (25.7-32.2) pg MCHC 34.9 (32.2-35.5) g/dl RDW Std Deviation 39.1 (35.1-43.9) fL Plt Count 370 H D (163-337) K/mm3 MPV 10.6 (9.4-12.3) fl Neut % (Auto) 60.4 (34.0-67.9) % Lymph % (Auto) 17.6 L (21.8-53.1) % [place] % (Auto) 20.5 H (5.3-12.2) % Eos % (Auto) 0.7 L (0.8-7.0) Baso % (Auto) 0.2 (0.1-1.2) % Neut # (Auto) 4.97 (1.78-5.38) K/mm3 Lymph # (Auto) 1.45 (1.32-3.57) K/mm3 [place] # (Auto) 1.69 H (0.30-0.82) K/mm3 Eos # (Auto) 0.06 (0.04-0.54) K/mm3 Baso # (Auto) 0.02 (0.01-0.08) K/mm3 Manual Slide Review Not Reportable Sodium 136 (136-145) mEq/L Potassium 3.2 L (3.5-5.1) mEq/L Chloride 97 L (98-107) mEq/L Carbon Dioxide 28 (21-32) mEq/L Anion Gap 14.2 (5-15) BUN 64 H (7-18) mg/dL Creatinine 1.9 H (0.7-1.3) mg/dL Est Cr Clr Drug Dosing 40.10 mL/min Estimated GFR (MDRD) 37 (>60) mL/min BUN/Creatinine Ratio 33.7 H (14-18) Glucose 101 H (70-99) mg/dL Calcium 7.7 L (8.5-10.1) mg/dL Magnesium (1.8-2.4) mg/dL Total Bilirubin 0.4 (0.2-1.0) mg/dL AST 13 L (15-37) U/L ALT 20 (16-63) U/L Alkaline Phosphatase 48 (46-116) U/L Creatine Kinase (39-308) U/L C-Reactive Protein (<1.0) mg/dL Total Protein 6.4 (6.4-8.2) g/dl Albumin 2.6 L (3.4-5.0) g/dl Globulin 3.8 gm/dL Albumin/Globulin Ratio 0.7 L (1-2) TSH 3rd Generation (0.358-3.74) uIU/mL Urine Color Yellow (Yellow) Urine Appearance Clear (Clear) Urine pH 6.0 (5.0-8.0) Ur Specific [place] 1.025 (1.005-1.030) Urine Protein 1+ H (Negative) Urine Glucose (UA) Negative (Negative) Urine Ketones Negative (Negative) Urine Occult Blood 1+ H (Negative) Urine Nitrite Negative (Negative) Urine Bilirubin Negative (Negative) Urine Urobilinogen 0.2 (0.2-1.0) Ur Leukocyte Esterase Negative (Negative) Urine RBC 0-5 (0-5) /hpf Urine WBC 0-5 (0-5) /hpf Ur Squamous Epith Cells 0-5 (0-5) /hpf Urine Bacteria Few (FEW) /hpf Urine Mucus Few (FEW) /hpf C.difficile 027-NAP1-B1 C. difficile Tox (PCR) 08/25/20 Range/Units 18:53 WBC (4.23-9.07) K/mm3 RBC (4.63-6.08) M/mm3 Hgb (13.7-17.5) gm/dl Hct (40.1-51.0) % MCV (79.0-92.2) fl MCH (25.7-32.2) pg MCHC (32.2-35.5) g/dl RDW Std Deviation (35.1-43.9) fL Plt Count (163-337) K/mm3 MPV (9.4-12.3) fl Neut % (Auto) (34.0-67.9) % Lymph % (Auto) (21.8-53.1) % [place] % (Auto) (5.3-12.2) % Eos % (Auto) (0.8-7.0) Baso % (Auto) (0.1-1.2) % Neut # (Auto) (1.78-5.38) K/mm3 Lymph # (Auto) (1.32-3.57) K/mm3 [place] # (Auto) (0.30-0.82) K/mm3 Eos # (Auto) (0.04-0.54) K/mm3 Baso # (Auto) (0.01-0.08) K/mm3 Manual Slide Review Sodium (136-145) mEq/L Potassium (3.5-5.1) mEq/L Chloride (98-107) mEq/L Carbon Dioxide (21-32) mEq/L Anion Gap (5-15) BUN (7-18) mg/dL Creatinine (0.7-1.3) mg/dL Est Cr Clr Drug Dosing mL/min Estimated GFR (MDRD) (>60) mL/min BUN/Creatinine Ratio (14-18) Glucose (70-99) mg/dL Calcium (8.5-10.1) mg/dL Magnesium (1.8-2.4) mg/dL Total Bilirubin (0.2-1.0) mg/dL AST (15-37) U/L ALT (16-63) U/L Alkaline Phosphatase (46-116) U/L Creatine Kinase (39-308) U/L C-Reactive Protein (<1.0) mg/dL Total Protein (6.4-8.2) g/dl Albumin (3.4-5.0) g/dl Globulin gm/dL Albumin/Globulin Ratio (1-2) TSH 3rd Generation (0.358-3.74) uIU/mL Urine Color (Yellow) Urine Appearance (Clear) Urine pH (5.0-8.0) Ur Specific [place] (1.005-1.030) Urine Protein (Negative) Urine Glucose (UA) (Negative) Urine Ketones (Negative) Urine Occult Blood (Negative) Urine Nitrite (Negative) Urine Bilirubin (Negative) Urine Urobilinogen (0.2-1.0) Ur Leukocyte Esterase (Negative) Urine RBC (0-5) /hpf Urine WBC (0-5) /hpf Ur Squamous Epith Cells (0-5) /hpf Urine Bacteria (FEW) /hpf Urine Mucus (FEW) /hpf C.difficile 027-NAP1-B1 Presumptive negative C. difficile Tox (PCR) Negative Meds: Medications Discontinued Medications Generic Name Dose Route Start Last Admin Trade Name Madison PRN Reason Stop Dose Admin Sodium Chloride 1,000 mls @ 999 mls/hr 08/25/20 14:06 08/25/20 14:31 Normal Saline IV 08/25/20 15:06 999 mls/hr ONETIME ONE Administration Lactated Ringer's 1,000 mls @ 999 mls/hr 08/25/20 16:17 08/25/20 16:48 Ringers, Lactated IV 08/25/20 17:17 999 mls/hr NOW STA Administration Lactated Ringer's 1,000 mls @ 999 mls/hr 08/25/20 17:20 08/25/20 17:45 Ringers, Lactated IV 08/25/20 18:20 999 mls/hr NOW STA Administration Ondansetron HCl 4 mg 08/25/20 14:06 08/25/20 14:28 Ondansetron 4 Mg/2 Ml Sdv IVPUSH 08/25/20 14:07 4 mg ONETIME ONE Administration Potassium Chloride 40 meq 08/25/20 20:17 08/25/20 20:21 Potassium Chloride 20 Meq Tab.Er PO 08/25/20 20:18 40 meq ONETIME ONE Administration Sodium Chloride 10 ml 08/25/20 14:06 08/25/20 14:32 Sodium Chloride 0.9% 10 Ml Syringe FLUSH 10 ml ASDIRECTED PRN Administration Keep Vein Open - Re-Assessments/Exams Free Text/Narrative Re-Assessment/Exam: 08/25/20 17:42 Care assumed from Sarah Little NP . Hematology significant for WBC minimally elevated 9.22, hemoglobin 18.6, platelets 501, sodium 133, potassium 3.2, chloride 91, anion gap 22.2, BUN 80, creatinine 2.7, CRP 7.5. Urinalysis showed 1+ protein 1+ occult blood but was otherwise unremarkable. CK is normal. Lab work indicates that the patient is significantly dehydrated. Case was discussed with ER physician Dr. Medina. He recommmended a total of 3 liters of fluid. I will recheck his labs after this. Unfortunately we have no medical beds available in our facility. If we can improve his lab work in the ER, he will be discharged home, otherwise will have to visit with facilities in [place] for admission. 08/25/20 18:43 Patient reports that he is feeling quite a bit better after the fluids. His appetite is returning and he has been voiding. I have ordered repeat labs to be drawn at 1900. He has not had any loose stool since he has been here but thinks that he can provide a stool sample now. 08/25/20 20:13 After 3 L of fluid, WBC and hemoglobin are normal. Sodium is normal at 133, potassium continues to be low at 3.2. We will replace this with 40 mill equivalents of KCl orally. Anion gap has improved to 14.2. BUN improved but still elevated at 64, creatinine improved but still elavated at 1.9. C. difficile is negative. Discussed the option of admission for IV fluids with the patient; however, we have no beds available here in [place] so this would require transfer to [place]. Pt feels that he will do well with increasing his fluids at home and declined admission with a transfer to [place]. He is already feeling much better and has his appetite back so he would like to eat something. He has voided 3 times since being in ER. As he continues to void, his BUN should continue to come down. Recommend that he drink at least 100 oun reinaldo of Gatorade or Powerade per day. Instructed that he should follow-up in the clinic on Sunday to have his blood work rechecked. Should he develop worsening symptoms such as development of nausea and vomiting, increased diarrhea, lack of urination, or any other concerning symptoms, he should return to the emergency department for reevaluation. He verbalizes understanding of this. Discharge instructions as documented. Departure - Departure Time of Disposition: 20:15 Condition: Good - Discharge Information *PRESCRIPTION DRUG MONITORING PROGRAM REVIEWED*: No *COPY OF PRESCRIPTION DRUG MONITORING REPORT IN PATIENT JOVITA: No
[2020-08-25] MEDS ORDERED: Lactated Ringers 1,000 ML IV STA ×2 (16:17→17:20)
[2020-08-25] MEDS ORDERED: Potassium Chloride 20 MEQ Tab.ER PO ONE (20:17)
== END 2020-08-25 20:30 | disposition home or self-care (01) ==
LOC: JD.ED 13:46
DX: N17.9 Acute kidney failure, unspecified (principal); E86.1 Hypovolemia; E86.0 Dehydration; E87.6 Hypokalemia; Z88.0 Allergy status to penicillin; Z72.0 Tobacco use
CPT/HCPCS: 36415; 80053; 81001; 82550; 83735; 84443; 85025; 86140; 87045; 87046; 87493; 87899; 96374; 99284; A9270; J2405; J7030; J7120